=== PATIENT | male | born 1960 | race Caucasian/White ===

== ENCOUNTER 2016-11-21 19:34 | Emergency (ER) | payer BC ==
[2016-11-21] MEDS ORDERED: TDAP ADULT 0.5 ML INJ (BOOSTRIX) IM ONE (19:55)
--- NOTE | 2016-11-21 20:01 | EDPHY ---
H & P Stated Complaint: laceration left thumb Time Seen by Provider: 11/21/16 20:00 - Personal History Current Tetanus Diphtheria and Acellular Pertussis (TDAP): No - Medical/Surgical History Hx Asthma: No Hx Chronic Respiratory Disease: No Hx Diabetes: No Hx Cardiac Disease: No Hx Renal Disease: No Hx Cirrhosis: No Hx Alcoholism: No Hx HIV/AIDS: No Hx Splenectomy or Spleen Trauma: No Other PMH: hypothyroid, hashimotos, high cholesterol - Social History Smoking Status: Never smoked Constitutional: Initial Vital Signs Temperature (C) 36.8 C 11/21/16 19:51 Heart Rate 79 11/21/16 19:51 Respiratory Rate 14 11/21/16 19:51 Blood Pressure 128/83 H 11/21/16 19:51 O2 Sat (%) 93 11/21/16 19:51 O2 Delivery Mode Room Air Allergies/Adverse Reactions: No Known Allergies Allergy (Unverified 11/21/16 19:50) Home Medications: Medication Instructions Recorded ARMOUR THYROID 11/21/16 Atorvastatin Calcium 11/21/16 Medical Decision Making ED Course/Re-evaluation: CHIEF COMPLAINT: Thumb laceration HISTORY OF PRESENT ILLNESS: must have 4 elements: Location, Quality, Severity , Duration, Timing, Context, Modifying Factors, Associated Signs and Symptoms This patient is a healthy 56 year old male complaining of left thumb pain and bleeding secondary to an accidental thumb laceration from a knife this afternoon at 16:45. He states his knife slipped while cutting drywall. He cleaned the injury with hydrogen peroxide, and a neighbor helped him bandage the cut, but at 19:00 he noted persistent bleeding. He will be taking a trip out of the country to [facility] tomorrow, so wished to be evaluated. He denies any associated symptoms or other trauma. REVIEW OF SYSTEMS: A 10 point review of systems was performed and is negative with the exception of the elements mentioned in the history of present illness. PHYSICAL EXAM: HR, BP, O2 Sat, RR. Temp noted General Appearance: Alert, well hydrated, appropriate, and non-toxic appearing. Head: Atraumatic without scalp tenderness or obvious injury Eyes: Pupils equal, round, reactive to light and accommodation, EOMI, no trauma , no injection. Ears: Clear bilaterally, no perforation, normal landmarks Nose: Atraumatic, no rhinorrhea, clear. Throat: There is no erythema or exudates, no lesions, normal tonsils, mucus membranes moist. Neck: Supple, 2+ carotid upstroke, nontender, no lymphadenopathy. Respiratory: No retractions, no distress, no wheezes, and no accessory muscle use. Lungs are clear to auscultation bilaterally. Cardiovascular: Regular rate and rhythm, no murmurs, rubs, or gallops. Bilateral carotid, radial, dorsalis pedis, and posterior tibial pulses intact. Good capillary refill all extremities. Gastrointestinal: Abdomen is soft, nontender, non-distended, no masses, no rebound, no guarding, no peritoneal signs. Musculoskeletal: Skived 1cm laceration to distal aspect of his left thumb. No neuromuscular involvement. Otherwise normal active ROM of all extremities, no other trauma. Neurological: Alert, appropriate, and interactive. The patient has normal DTRs and non-focal cranial nerves, motor, sensory, and cerebellar exam. Skin: No rashes, good turgor, no nodules on palpation. Past medical history: Past surgical history: Family history: Social history: [employer]. DIAGNOSTICS/PROCEDURES/CRITICAL CARE TIME: Procedure: Laceration repair. Verbal consent was obtained from the patient. The linear [wound size] laceration was cleaned with standard ED protocol, draped and explored to its base with a gloved finger. The wound was repaired with DermaBond. The wound repair was simple. The procedure was performed by myself. DIFFERENTIAL DIAGNOSIS: Including but not limited to: laceration, foreign body, MEDICAL DECISION MAKING: This patient is a healthy 56 year old male presenting with a 1cm skived laceration to the distal aspect of his left thumb secondary to an accidental knife cut this afternoon.There is no neuromuscular involvement. Physical exam is otherwise unremarkable, and there is no evidence of systemic infection. He received a tetanus shot. Laceration repair will be preformed with DermaBond, and he will be discharged home in good condition. Return precautions discussed. The patient is comfortable with this plan. - Data Points Medications Given: Discontinued Medications Diphtheria/Tetanus/Acell Pertussis (Boostrix) 0.5 ml IM .ONCE ONE Stop: 11/21/16 19:56 Last Admin: 11/21/16 20:03 Dose: 0.5 ml Departure - Departure Disposition: Home, Routine, Self-Care Clinical Impression: Laceration Laceration of thumb Qualifiers: Encounter type: initial encounter Laterality: right Qualified Code(s): S61.011A - Laceration without foreign body of right thumb without damage to nail , initial encounter Condition: Good Instructions: Finger Laceration (ED) Additional Instructions: 1. Remove your BandAid in 48 hours and check for signs of infection including the symptoms listed below. 2. Return to the ED for redness, swelling, discharge, fever, or other worsening of condition. Referrals: Ez Aguirre MD [Medical Doctor] - As per Instructions Report Scribed for: Archie Jurado Report Scribed by: Sultana Prado Date of Report: 11/21/16 Time of Report: 20:13
[2016-11-21 20:06] VITALS: RESP 14
[2016-11-21] MEDS ORDERED: SKIN ADHESIVE (DERMABOND) 1 EACH TP ONE (20:15)
[2016-11-21 20:49] VITALS: BP 128/76; PULSE 72; TEMP 98.4; O2SAT 94
== END 2016-11-21 20:45 | disposition home or self-care (01) ==
LOC: CED 19:34
PROC: 0HQGXZZ Repair Left Hand Skin, External Approach (ICD-10-PCS; principal; 2016-11-21)
DX: S61.012A Laceration without foreign body of left thumb without damage to nail, initial encounter (principal); Z23 Encounter for immunization; W26.0XXA Contact with knife, initial encounter; Y99.8 Other external cause status; Y93.89 Activity, other specified